=== PATIENT | female | born 1975 | race African-American/Black ===

== ENCOUNTER 2020-08-06 16:17 | Emergency (ER) | payer OTHER ==
[~2020-08-06] VITALS: Ht 165.1 cm; Wt 87.5 kg
[2020-08-06 16:26] VITALS: BP 185/95
[2020-08-06 17:56] LABS: URINE BILIRUBIN NEGATIVE (Negative); URINE BLOOD TRACE (Negative); URINE CLARITY CLEAR; URINE COLOR YELLOW; URINE GLUCOSE-RANDOM* 2+ (Negative); URINE KETONES TRACE (Negative); URINE NITRITE-REFLEX NEGATIVE (Negative); URINE PROTEIN (DIPSTICK) NEGATIVE (Negative); URINE SPECIFIC GRAVITY >= 1.030 (1.005-1.035); URINE UROBILINOGEN 0.2 E.U./dl (0.2-1.0)
[2020-08-06 17:59] LABS: URINE LEUKOCYTES-REFLEX 1+ (Negative)
[2020-08-06] MEDS ORDERED: DOXYCYCLINE 10100 MG PO (18:24)
[2020-08-06] MEDS ORDERED: FLAGYL500 M1 PO (18:24)
[2020-08-06 18:26] LABS: MUCUS 4-6 Moderate strn/LPF (None Seen); SQUAMOUS 4-10 Moderate /LPF (0-3)
[2020-08-06 18:27] LABS: CASTS None Seen /LPF (None Seen); CRYSTALS None Seen /LPF (None Seen); URINE RBC 0-2 Rare /HPF (0-2)
== END 2020-08-06 20:33 | disposition home or self-care (01) ==
LOC: ER 16:17
PROVIDERS: Physician Assistant
DX: A59.01 Trichomonal vulvovaginitis (principal); N89.8 Other specified noninflammatory disorders of vagina; F12.90 Cannabis use, unspecified, uncomplicated; Z98.890 Other specified postprocedural states; Z88.8 Allergy status to other drugs, medicaments and biological substances